=== PATIENT | male | born 1945 | race Caucasian/White ===

== ENCOUNTER 2021-06-18 22:14 | Emergency (ER) | payer MEDICARE, OTHER ==
[2021-06-18 23:18] LABS: BASOPHIL 0.4 % (0-2); HCT 44.6 % (42.0-52.0); HGB 14.3 g/dl (13.2-18.0); LYMPHOCYTE 19.6 % (15-48); MCH 29.2 pg (25.0-31.0); MCHC 32.1 g/dL (32.0-36.0); MONOCYTE 7.4 % (0-12); MPV 10.9 fL (6.0-9.5); NEUTROPHIL 67.3 % (41-80); NRBC 0; PLT 246 K/uL (150-400); RDW 12.8 % (11.5-14.0); WBC 12.9 K/uL (4.0-10.5)
[2021-06-18 23:22] LABS: INR 1.8 (0.9-1.2); PROTHROMBIN TIME 20.1 SECONDS (11.8-13.4)
[2021-06-18 23:35] LABS: ALBUMIN 3.7 g/dL (3.4-5.0); BILIRUBIN - TOTAL 0.4 mg/dL (0.2-1.0); BUN/CREAT RATIO (CALC) 17.4 RATIO; CREATININE 1.21 mg/dL (0.67-1.17); GLOBULIN (CALCULATION) 2.9 g/dL; POTASSIUM 4.9 mmol/L (3.5-5.1); TOTAL PROTEIN 6.6 g/dL (6.4-8.2)
[2021-06-18 23:39] LABS: BILIRUBIN NEGATIVE (NEGATIVE); BLOOD 3+ Ery/uL (NEGATIVE); CLARITY CLEAR (CLEAR); COLOR YELLOW (YELLOW); GLUCOSE (U) NORMAL (NORMAL); LEUKOCYTES TRACE Leu/uL (NEGATIVE); NITRITE NEGATIVE (NEGATIVE); PROTEIN TRACE (LOW) mg/dL (NEGATIVE); SPECIFIC GRAVITY >=1.030 (1.001-1.030); UROBILINOGEN 0.2 mg/dL (0.2-1.0); pH 5.5 (5.0-9.0)
[2021-06-18 23:46] LABS: AMORPHOUS URATES CRYSTALS TRACE; BACTERIA TRACE; MUCOUS MODERATE; SQUAMOUS EPITHELIAL CELLS RARE; URINARY RBC 20-50
[2021-06-19 00:46] LABS: LACTIC ACID 2.6 mmol/L (0.4-1.9)
[2021-06-19] MEDS ORDERED: ZOFRAN4 M1 PO (02:25)
[2021-06-19] MEDS ORDERED: OXY-IR 5MG5 MG PO (02:25)
[2021-06-19] MEDS ORDERED: BACTRIM DS TAB1 EACH PO (02:25)
[2021-06-19] MEDS ORDERED: FLOMAX 0.4 MG0.4 MG PO (02:25)
== END 2021-06-19 02:50 | disposition home or self-care (01) ==
LOC: FER 22:14
PROVIDERS: Emergency Medicine
DX: N13.2 Hydronephrosis with renal and ureteral calculous obstruction (principal); I10 Essential (primary) hypertension; E11.9 Type 2 diabetes mellitus without complications; Z79.01 Long term (current) use of anticoagulants
CPT/HCPCS: 36415; 80053; 81001; 83605; 83690; 84484; 85025; 85610; 87040; 87076; 87088; 87186; 93005; J2405; J2543; J7030